=== PATIENT | male | born 1945 | race Caucasian/White ===

== ENCOUNTER 2023-12-13 13:15 | Outpatient (OUT) | payer MEDICARE, SELFPAY ==
--- NOTE | 2023-12-13 13:30 | MR_ITS ---
The [address] [address] Patient Name: MICA MORROW MRN: [id number] date: 1945 Sex: M Assigned Patient Location: MRI Current Patient Location: Accession/Order Number: [id number] Exam Date: 12/13/2023 15:00 Report Date: 12/17/2023 10:39 At the request of: NON-STAFF PHYSICIAN Procedure: MR humerus RT wo/w con EXAM: MR humerus RT wo/w con REASON FOR EXAM: Metastasis To Bone C79.51. TECHNIQUE: Multiplanar, multisequence imaging of the right humerus was performed before and after the uneventful intravenous administration of gadolinium contrast COMPARISON: CT scan 12/05/2023. FINDINGS: Intramedullary kizzy fixation is noted of the humerus. There is diffuse abnormal marrow signal and cortical destruction involving the distal approximately 17 cm of the humerus. Redemonstration of a comminuted, moderately displaced pathologic fracture involving the distal humerus with intra-articular extension. There is heterogeneously enhancing soft tissue component surrounding the distal humerus. Probable reactive marrow edema is noted in the proximal radius and ulna. A small joint effusion is noted in the elbow. No definite discrete muscle strain or tendon tear is evident. Probable reactive edema within the upper arm musculature. There is rotator cuff tendinosis without full-thickness tear, however, study not ideal for this purpose. MR/MR humerus RT wo/w con IMPRESSION: 1. Redemonstration of diffuse osseous metastatic disease with comminuted pathologic fracture involving the distal humerus with intra-articular extension. Surgical changes are noted. Electronically authenticated by: SHARONA MCCOLLUM Date: 12/17/2023 10:39
== END 2023-12-13 13:16 | disposition home or self-care (01) ==
LOC: MRI 13:22
PROVIDERS: PCP Family Medicine
DX: C79.51 Secondary malignant neoplasm of bone (principal); M84.421A Pathological fracture, right humerus, initial encounter for fracture
CPT/HCPCS: 73220; A9575